=== PATIENT | male | born 1950 | race Caucasian/White ===

== ENCOUNTER 2018-12-24 16:30 | Emergency (ER) | payer SELFPAY ==
[2018-12-24] MEDS ORDERED: LEVALBUTEROL 1.25 MG/3 ML NEB ONE (16:59)
[2018-12-24 17:14] LABS: Absolute Lymphocytes (CBC) 1.6 K/uL (0.7-4.9); Basophils % 0.5 % (0-1.3); Hematocrit 35.2 % (39.6-49.0); MPV 8.4 fL (7.6-11.3); Monocytes % 4.3 % (3.3-12.3); RBC Red Blood Cell Count 3.95 M/uL (4.33-5.43)
[2018-12-24 17:18] LABS: Protime INR 1.92
[2018-12-24 17:41] LABS: Albumin 3.3 g/dL (3.4-5.0); Bilirubin Direct 0.2 mg/dL (0-0.2); Bilirubin Total 0.4 mg/dL (0.2-1.0); Potassium 3.8 mmol/L (3.5-5.1); Protein, Total 6.8 g/dL (6.4-8.2); Troponin (Emerg Dept Use Only) 0.03 ng/mL (0.0-0.045)
[2018-12-24 17:42] LABS: Magnesium 1.2 mg/dL (1.8-2.4)
--- NOTE | 2018-12-24 17:51 | RAD REPORT ---
EXAM DESCRIPTION: RAD - Chest Single View - 12/24/2018 5:21 pm CLINICAL HISTORY: Shortness of breath COMPARISON: None. TECHNIQUE: AP portable chest image was obtained 1707 hours . FINDINGS: No peripheral mass or consolidation. Interstitial markings are mildly prominent with the b aseline for the patient unknown. Cardiomegaly is present. Vasculature is mildly prominent. Again, bas [place] for the patient is unknown. No measurable pleural effusion and no pneumothorax. No acute bony abnormality seen. No acute aortic findings suspected. IMPRESSION: Cardiomegaly with mild vascular engorgement. Interstitial markings are prominent. Absent a baseline for comparison, findings are suspicious for mild failure or volume overload.
[2018-12-24] MEDS ORDERED: Levofloxacin 750mg IV 750 MG/150 ML BAG IV ONE (18:34)
[2018-12-24] MEDS ORDERED: Magnesium Sulfate 2gm IVPB 2 G/50 ML BAG IV ONE (18:35)
--- NOTE | 2018-12-24 20:40 | ER ---
Nurse's Notes [facility] [place], [place] [facility] Name: Cecilio Robles Age: 68 yrs Sex: Male : 1950 Arrival Date: 12/24/2018 Time: 16:32 Bed 2 Private MD: Diagnosis: Chronic obstructive pulmonary disease with (acute) exacerbation Presentation: 12/24 16:35 Presenting complaint: EMS states: pt was at the [facility] for an appointment due to sg shortness of breath and productive cough. Transition of care: patient was received from another setting of care (ambulatory primary care physician practice), [facility]. Onset of symptoms was December 24, 2018. Risk Assessment: Do you want to hurt yourself or someone else? Patient reports no desire to harm self or others. Initial Sepsis Screen: Does the patient meet any 2 criteria? RR > 20 per min. HR > 90 bpm. Yes Does the patient have a suspected source of infection? Yes: Productive cough/pneumonia. Care prior to arrival: Medication(s) given: Albuterol Neb x 3, Atrovent Neb x 1, Solumedrol IV initiated. 20 GA, in the right hand, Med neb given. 16:35 Method Of Arrival: EMS: [facility] sg 16:35 Acuity: АННА 3 sg Triage Assessment: 20:26 General: Appears in no apparent distress. Respiratory: Onset: The symptoms/episode ak1 began/occurred at an unknown time. the patient has mild shortness of breath. Historical: - Allergies: 18:29 No Known Allergies; sg - PMHx: 16:35 CHF; sg 18:29 Sleep Apnea; Diabetes - NIDDM; Hypothyroidism; Atrial Fib; PTSD; Hypertension; COPD; sg - Immunization history:: Adult Immunizations up to date. - Social history:: Smoking status: Patient/guardian denies using tobacco. - Ebola Screening: : Patient negative for fever greater than or equal to 101.5 degrees Fahrenheit, and additional compatible Ebola Virus Disease symptoms Patient denies exposure to infectious person Patient denies travel to an Ebola-affected area in the 21 days before illness onset No symptoms or risks identified at this time. Screenin:40 Abuse screen: Denies threats or abuse. Denies injuries from another. Nutritional sg screening: No deficits noted. Tuberculosis screening: No symptoms or risk factors identified. Never had TB. Fall Risk None identified. Assessment: 16:40 General: Appears in no apparent distress. well groomed, well developed, well nourished, sg Behavior is calm, cooperative, appropriate for age. Pain: Denies pain. Neuro: Level of Consciousness is awake, alert, obeys commands, Oriented to person, place, time, Iron Molder Helper are equal bilaterally Speech is normal, Facial symmetry appears normal. Cardiovascular: Capillary refill is brisk in bilateral fingers Patient's skin is warm and dry. Chest pain is denied. Cardiovascular: Rhythm is atrial fibrillation. Respiratory: Airway is patent Respiratory effort is even, unlabored, Respiratory pattern is regular. GI: Abdomen is round non-distended, obese, Reports tolerance of fluids, tolerance of food. : No signs and/or symptoms were reported regarding the genitourinary system. EENT: No signs and/or symptoms were reported regarding the EENT system. Derm: Skin is pink, warm \T\ dry. Musculoskeletal: No signs and/or symptoms reported regarding the musculoskeletal system. 17:40 Reassessment: Patient appears in no apparent distress at this time. Patient and/or sg family updated on plan of care and expected duration. Pain level reassessed. Patient is alert, oriented x 3, equal unlabored respirations, skin warm/dry/pink. 18:40 Reassessment: Patient appears in no apparent distress at this time. Patient and/or sg family updated on plan of care and expected duration. Pain level reassessed. Patient is alert, oriented x 3, equal unlabored respirations, skin warm/dry/pink. 20:25 General: Appears in no apparent distress. obese, Behavior is calm, cooperative, ak1 appropriate for age. Neuro: No deficits noted. Cardiovascular: Capillary refill is brisk Patient's skin is warm and dry. Rhythm is atrial fibrillation. Respiratory: Airway is patent Respiratory effort is even, unlabored, Respiratory pattern is regular, Breath sounds are clear pt with cough. GI: No signs and/or symptoms were reported involving the gastrointestinal system. : pt assisted out of bed to use urinal. EENT: No signs and/or symptoms were reported regarding the EENT system. Derm: No signs and/or symptoms reported regarding the dermatologic system. Musculoskeletal: No signs and/or symptoms reported regarding the musculoskeletal system. 21:00 Reassessment: pt ambulated with even unlabored resp. ERP notified. ak1 21:08 Reassessment: pt with steady gait at discharge. pt resp even and unlabored. pt ak1 verbalized understanding to return,even via EMS if needed. Vital Signs: 16:34 BP 155 / 109; Pulse 126; Resp 20; Temp 97.6; Pulse Ox 96% on R/A; Weight 102.06 kg; sg 17:00 BP 136 / 92; Pulse 101; Resp 18; Pulse Ox 98% on R/A; sg 18:00 BP 134 / 88; Pulse 99; Resp 18; Pulse Ox 98% on R/A; sg ED Course: 16:32 Patient arrived in ED. sg 16:33 Gabriele Julian PA is PHCP. jr8 16:33 Kemar Cardoso MD is Attending Physician. jr8 16:33 Arm band placed on. sg 16:38 Triage completed. sg 16:39 Anjel Connell, RN is Primary Nurse. sg 17:00 Initial lab(s) drawn, by ct, sent to lab. IV is patent, is intact, with good blood sg return, Flushed right hand with 5 ml normal saline. 17:22 XRAY Chest (1 view) In Process Unspecified. EDMS 17:27 EKG done, by sand technician. reviewed by Gabriele VILLANUEVA. sm3 18:20 First set of blood cultures drawn by ED staff, and second set obtained by Vipin VILLANUEVA. sg 20:27 Patient has correct armband on for positive identification. Placed in gown. Bed in low ak1 position. Call light in reach. Side rails up X 1. Adult w/ patient. bus driver/monitor on. Pulse ox on. NIBP on. 20:27 No provider procedures requiring assistance completed. ak1 21:00 IV discontinued, intact, bleeding controlled, No redness/swelling at site. Pressure ak1 dressing applied. Administered Medications: 17:00 Drug: Xopenex 1.25 mg Route: Inhalation; sg 19:00 Drug: LevaQUIN 750 mg Volume: 150 ml; Route: IVPB; Infused Over: 90 mins; Site: right sg hand; 20:31 Follow up: IV Status: Completed infusion ak1 19:00 Drug: Magnesium Sulfate 2 grams Route: IVPB; Infused Over: 2 hrs; Site: right hand; sg 20:31 Follow up: IV Status: Completed infusion ak1 Outcome: 20:29 Condition: good ak1 20:40 Discharge ordered by . jr8 20:58 Discharged to home via wheelchair, with family. ak1 20:58 Discharge instructions given to patient, family, Instructed on discharge instructions, follow up and referral plans. no drinking with medication, no driving heavy equipment, medication usage, Demonstrated understanding of instructions, follow-up care, medications, Prescriptions given X 2. 21:09 Patient left the ED. ak1 Signatures: Dispatcher [employer] EDMS Anjel Connell RN RN Gabriele English PA PA jr8 Licha Perez RN RN ak1 Yani Lau [facility]
--- NOTE | 2018-12-24 20:41 | EDPHYS ---
Physician Documentation [facility] [place] Name: Cecilio Robles Age: 68 yrs Sex: Male : 1950 Arrival Date: 12/24/2018 Time: 16:32 Bed 2 Private MD: ED Physician Kemar Cardoso HPI: 12/24 16:44 This 68 yrs old Male presents to ER via EMS with complaints of Shortness Of Breath. jr8 16:44 The patient has shortness of breath at rest. Onset: The symptoms/episode began/occurred jr8 gradually, 2 day(s) ago, and became worse today, and became persistent today. Duration: The symptoms are continuous. The patient's shortness of breath is aggravated by light activity, walking. Associated signs and symptoms: Pertinent positives: non-productive cough. Severity of symptoms: At their worst the symptoms were moderate in the emergency department the symptoms are unchanged. It is unknown whether or not the patient has had similar symptoms in the past. The patient has been recently seen by a physician:. [place] went [place] today to be evaluated for increased shortness of breath and cough. History of CHF and COPD amongst other medical conditions. EMS called to clinic for increased work of breathing, fatigue, and shortness of breath. Given breathing treatments at clinic and en route to hospital. Now feeling better but sill with audible wheezing upon arrival . Historical: - Allergies: 18:29 No Known Allergies; sg - PMHx: 16:35 CHF; sg 18:29 Sleep Apnea; Diabetes - NIDDM; Hypothyroidism; Atrial Fib; PTSD; Hypertension; COPD; sg - Immunization history:: Adult Immunizations up to date. - Social history:: Smoking status: Patient/guardian denies using tobacco. - Ebola Screening: : Patient negative for fever greater than or equal to 101.5 degrees Fahrenheit, and additional compatible Ebola Virus Disease symptoms Patient denies exposure to infectious person Patient denies travel to an Ebola-affected area in the 21 days before illness onset No symptoms or risks identified at this time. ROS: 16:44 Eyes: Negative for injury, pain, redness, and discharge, ENT: Negative for injury, jr8 pain, and discharge, Neck: Negative for injury, pain, and swelling, Cardiovascular: Negative for chest pain, palpitations, and edema, Abdomen/GI: Negative for abdominal pain, nausea, vomiting, diarrhea, and constipation, Back: Negative for injury and pain, MS/Extremity: Negative for injury and deformity, Skin: Negative for injury, rash, and discoloration, Neuro: Negative for headache, weakness, numbness, tingling, and seizure. 16:44 Respiratory: Positive for cough, dyspnea on exertion, shortness of breath, wheezing. Exam: 16:44 Eyes: Pupils equal round and reactive to light, extra-ocular motions intact. Lids and jr8 lashes normal. Conjunctiva and sclera are non-icteric and not injected. Cornea within normal limits. Periorbital areas with no swelling, redness, or edema. ENT: Nares patent. No nasal discharge, no septal abnormalities noted. Tympanic membranes are normal and external auditory canals are clear. Oropharynx with no redness, swelling, or masses, exudates, or evidence of obstruction, uvula midline. Mucous membranes moist. Neck: Trachea midline, no thyromegaly or masses palpated, and no cervical lymphadenopathy. Supple, full range of motion without nuchal rigidity, or vertebral point tenderness. No Meningismus. Abdomen/GI: Soft, non-tender, with normal bowel sounds. No distension or tympany. No guarding or rebound. No evidence of tenderness throughout. Back: No spinal tenderness. No costovertebral tenderness. Full range of motion. Skin: Warm, dry with normal turgor. Normal color with no rashes, no lesions, and no evidence of cellulitis. MS/ Extremity: Pulses equal, no cyanosis. Neurovascular intact. Full, normal range of motion. Neuro: Awake and alert, GCS 15, oriented to person, place, time, and situation. Cranial nerves II-XII grossly intact. Motor strength 5/5 in all extremities. Sensory grossly intact. Cerebellar exam normal. Normal gait. 16:44 Cardiovascular: Rate: tachycardic, Rhythm: irregularly irregular, Pulses: Pulses are 2+ in right radial artery and left radial artery. Heart sounds: normal, normal S1and S2, no S3 or S4, no murmur, no rub, no gallop, Edema: 1+ edema to level of left midcalf, left ankle, right midcalf and right ankle, JVD: is not appreciated. 16:44 Respiratory: mild respiratory distress is noted, Respirations: tachypnea, Breath sounds: wheezing: expiratory that is moderate, is heard diffusely. Vital Signs: 16:34 BP 155 / 109; Pulse 126; Resp 20; Temp 97.6; Pulse Ox 96% on R/A; Weight 102.06 kg; sg 17:00 BP 136 / 92; Pulse 101; Resp 18; Pulse Ox 98% on R/A; sg 18:00 BP 134 / 88; Pulse 99; Resp 18; Pulse Ox 98% on R/A; sg MDM: 16:33 Patient medically screened. rust 20:38 Data reviewed: vital signs, nurses notes, lab test result(s), EKG, radiologic studies, jr plain films, and as a result, I will discharge patient. Data interpreted: Pulse oximetry: on room air is 95 %. Interpretation: normal. Counseling: I had a detailed discussion with the patient and/or guardian regarding: the historical points, exam findings, and any diagnostic results supporting the discharge/admit diagnosis, lab results, radiology results, the need for outpatient follow up, a family practitioner, to return to the emergency department if symptoms worsen or persist or if there are any questions or concerns that arise at home. Response to treatment: the patient's symptoms have resolved after treatment. ED course: Patient off of oxygen and feeling much better. Was ambulated and without any complaint. Labs stable. No pneumonia present. Patient with plenty of medicine at home. [facility] If worse knows to come back . 12/24 16:33 Order name: Basic Metabolic Panel rust 12/24 16:33 Order name: CBC with Diff; Complete Time: 17:19 rust 12/24 16:33 Order name: LFT's; Complete Time: 17:43 rust 12/24 16:33 Order name: Magnesium; Complete Time: 17:43 rust 12/24 16:33 Order name: NT PRO-BNP; Complete Time: 17:43 rust 12/24 16:33 Order name: PT-INR; Complete Time: 17:29 rust 12/24 16:33 Order name: Troponin (emerg Dept Use Only); Complete Time: 17:43 rust 12/24 16:33 Order name: XRAY Chest (1 view); Complete Time: 17:56 rust 12/24 16:33 Order name: Procalcitonin; Complete Time: 17:56 rust 12/24 16:33 Order name: Lactate; Complete Time: 17:43 rust 12/24 16:33 Order name: Blood Culture Adult (2) rust 12/24 16:36 Order name: Basic Metabolic Panel; Complete Time: 17:43 [facility] 12/24 20:25 Order name: Lactate Sepsis 2 HR Follow-up; Complete Time: 20:28 EDMN 12/24 16:33 Order name: EKG; Complete Time: 16:36 rust 12/24 16:33 Order name: Cardiac monitoring; Complete Time: 16:39 rust 12/24 16:33 Order name: EKG - Nurse/Tech; Complete Time: 20:31 rust 12/24 16:33 Order name: IV Saline Lock; Complete Time: 16:39 rust 12/24 16:33 Order name: Labs collected and sent; Complete Time: 16:39 rust 12/24 16:33 Order name: O2 Per Protocol; Complete Time: 16:40 rust 12/24 16:33 Order name: O2 Sat Monitoring; Complete Time: 16:40 rust Administered Medications: 17:00 Drug: Xopenex 1.25 mg Route: Inhalation; 19:00 Drug: LevaQUIN 750 mg Volume: 150 ml; Route: IVPB; Infused Over: 90 mins; Site: right sg hand; 20:31 Follow up: IV Status: Completed infusion ak1 19:00 Drug: Magnesium Sulfate 2 grams Route: IVPB; Infused Over: 2 hrs; Site: right hand; 20:31 Follow up: IV Status: Completed infusion ak1 Disposition: 12/25 07:29 Co-signature as Attending Physician, Kemar Cardoso MD I agree with the assessment and kdr plan of care. Disposition: 12/24/18 20:40 Discharged to Home. Impression: Chronic obstructive pulmonary disease with (acute) exacerbation. - Condition is Stable. - Discharge Instructions: Chronic Obstructive Pulmonary Disease. - Prescriptions for Levaquin 500 mg Oral Tablet - take 1 tablet by ORAL route once daily for 7 days; 7 tablet. Prednisone 20 mg Oral Tablet - take 1 tablet by ORAL route once daily for 5 days; 5 tablet. - Medication Reconciliation Form, Thank You Letter, Antibiotic Education, Prescription Opioid Use form. - Follow up: Private Physician; When: 2 - 3 days; Reason: Recheck today's complaints, Continuance of care, Re-evaluation by your physician. - Problem is new. - Symptoms have improved. Signatures: Dispatcher [employer] EDMS Anjel Connell RN RN Kemar Lopez MD MD kdr Roszak, Josh, PA PA jr8 Licha Perez RN RN ak1 Corrections: (The following items were deleted from the chart) 12/24 21:09 20:40 12/24/2018 20:40 Discharged to Home. Impression: Chronic obstructive pulmonary ak1 disease with (acute) exacerbation. Condition is Stable. Forms are Medication Reconciliation Form, Thank You Letter, Antibiotic Education, Prescription Opioid Use. Follow up: Private Physician; When: 2 - 3 days; Reason: Recheck today's complaints, Continuance of care, Re-evaluation by your physician. Problem is new. Symptoms have improved. jr8
--- NOTE | 2018-12-25 10:41 | EKG ---
Test Date: 2018-12-24 Test Time: 17:28:13 Commission Auditor: PAUL MEASUREMENT RESULTS: Intervals: Rate: 108 MO: QRSD: 86 QT: 354 QTc: 474 Kite: P: MO: QRS: 25 T: -44 INTERPRETIVE STATEMENTS: Atrial fibrillation with rapid ventricular response Low voltage QRS Septal infarct, age undetermined Abnormal ECG No previous ECG available for comparison Electronically Signed On 12-25-18 10:41:11 CDT by Awais [place]
== END 2018-12-24 21:09 | disposition home or self-care (01) ==
LOC: ER 16:30
DX: J44.1 Chronic obstructive pulmonary disease with (acute) exacerbation (principal); I11.0 Hypertensive heart disease with heart failure; I50.9 Heart failure, unspecified; E11.9 Type 2 diabetes mellitus without complications; E03.9 Hypothyroidism, unspecified; I48.91 Unspecified atrial fibrillation
CPT/HCPCS: 36415; 71045; 80048; 80076; 83605; 83735; 83880; 84145; 84484; 85025; 85610; 87040; 93005; 96365; 96366; 96368; 99285; J3475

== ENCOUNTER 2020-02-16 18:13 | Emergency (ER) | payer OTHER ==
--- OUTSIDE RECORDS SUMMARY | 2020-02-16 18:15 | XMS REPORT | Clinical Summary ---
:1950 Author Organization [facility] Address [address] [place] [address] Care Team Providers Name Role Phone Glenys Gutiérrez MD Primary Care Provider [phone] Allergies No Known Allergies Medications Medication Sig Dispensed Refills Start End Date Status Date budesonide-formotero Inhale 2 puffs 0 Active l (SYMBICORT) 2 (two) times 160-4.5 a day. mcg/actuation inhaler diltiazem CD Take 240 mg by 0 Ac tive (CardIZEM CD) 240 MG mouth daily. 24 hr capsule finasteride Take 5 mg by 0 Activ e (PROSCAR) 5 mg mouth daily. tablet fluticasone 1 spray into 0 Activ e (FLONASE) 50 each nostril 2 mcg/actuation nasal (two) times a spray day. glipiZIDE Take 10 mg by 0 Active (GLUCOTROL) 10 MG mouth. 2 tab tablet by mouth twice daily metFORMIN Take 850 mg by 0 Activ e (GLUCOPHAGE) 850 MG mouth 3 tablet (three) times a day. metoprolol tartrate Take 100 mg by 0 Active (LOPRESSOR) 25 MG mouth daily. tablet omeprazole Take 20 mg by 0 Activ e (PriLOSEC) 20 MG mouth daily. capsule saxagliptin Take 5 mg by 0 Activ e (ONGLYZA) 5 mg mouth daily. tablet tiotropium (SPIRIVA) Place 1 0 Active 18 mcg per capsule into inhalation capsule inhaler and inhale once daily. rivaroxaban Take 20 mg by 0 Acti ve (XARELTO) tablet mouth daily. blood sugar 0 Active diagnostic strips (ACCU-CHEK LISA PLUS TEST STRP) strip test strips prazosin (MINIPRESS) Take 4 mg by 0 Active 2 MG capsule mouth nightly. omega-3 fatty Take by mouth. 0 A ctive acids-vitamin E (FISH OIL) 1,000 mg capsule cholecalciferol, Take 400 Units 0 Active vitamin D3, (VITAMIN by mouth 3 D3 ORAL) (three) times a day. clindamycin Apply 0 Active (CLINDAGEL) 1 % gel topically 2 (two) times a day. cyanocobalamin 1,000 Inject 1,000 0 Active mcg/mL injection mcg into the shoulder, thigh, or buttocks once a week. levothyroxine Take 150 mcg 0 Act calixto (SYNTHROID, LEVOXYL) by mouth every 200 mcg tablet morning. lisinopril Take 40 mg by 0 Activ e (PRINIVIL,ZESTRIL) mouth daily. 40 mg tablet mupirocin Apply 0 Active (BACTROBAN) 2 % topically 3 ointment (three) times a day. buPROPion XL Take 300 mg by 0 Ac tive (WELLBUTRIN XL) 300 mouth daily. MG 24 hr tablet atorvastatin Take 80 mg by 0 Act calixto (LIPITOR) 80 MG mouth daily. tablet alogliptin 25 mg Take 25 mg by 0 Active tablet mouth daily. ibuprofen (ADVIL) TAKE ONE (1) 0 Active 800 MG tablet TABLET(S) BY 9 MOUTH THREE TIMES A DAY NEEDED FOR 10 DAYS. spironolactone Take 25 mg by 0 A ctive (ALDACTONE) 25 MG mouth daily. tablet sulfamethoxazole-tri Take 1 tablet 0 Active methoprim (BACTRIM by mouth 2 DS) 800-160 mg per (two) times a tablet day. Taking on 02/24/20 and 02/25/20 albuterol (PROAIR Inhale 2 puffs 18 g 3 0 HFA,PROVENTIL every 6 (six) 9 20 HFA,VENTOLIN HFA) 90 hours as mcg/actuation needed for inhalerIndications: wheezing. Chronic obstructive pulmonary disease, unspecified COPD type (HCC) cyclobenzaprine Take 0.5 30 tablet 0 06/16/20 Disc ontinued (FLEXERIL) 10 mg tablets (5 mg 9 19 (Cost of tabletIndications: total) by m edication) Acute midline low mouth 2 (two) back pain without times a day as sciatica, Acute needed for midline thoracic muscle spasms back pain for up to 30 days. Active Problems Problem Noted Date Influenza 09/15/2018 Normocytic anemia 09/15/2018 Sleep apnea 07/21/2018 Overview: Uses CPAP Monitored at [facility] Feels refreshed, relaxed every morning Able to sleep well with CPAP Last Assessment & Plan: Reports feeling refreshed and relaxed will continue using CPAP machine Hypothyroidism (acquired) 07/21/2018 Overview: Taking Levothyroxine 200 mcg denies constipation, fatigues TSH wnl- done at the [place] 08/2018 Last Assessment & Plan: continue Levothyroxine 200mcg Chronic obstructive pulmonary disease 04/14/2018 Overview: C/o cough, expectoration Decreased number of cigarettes to 4-5/da y has COPD - on Symbicort , Spiriva uses ALbuterol MDI- 4times/day, Uses O2 at night at home Last Assessment & Plan: COPD is stable Uses SPiriva, Symbicort and Albuterol Tremor of left hand 04/14/2018 Overview: C/o Tremors of left hand- new onset x 1 year Tremors occur when he trying to hold a c up , eat food, hold articles with his left hand- hand shakes incontrollably No tremors at rest Last Assessment & Plan: Consult Neurology Chronic atrial fibrillation 04/14/2018 Overview: On Xarelto gets meds from [facility] taking Metoprolol 12. 5mg bid , Digoxin , Diltiazem Denies any palpitations, SOB. 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 Currently decreased cigarettes to 4-5 ci garettes/day Taking Wellbutrin SR and helps to decrea se smoking Last Assessment & Plan: Will continue to encourage to stop smoking Mixed hyperlipidemia 04/14/2018 Overview: Takes Simvastatin 80mg No s/e Last Assessment & Plan: Lipid abnormalities are gradually improving will continue statin, exercise, diet mo dification PTSD (post-traumatic stress disorder) 04/14/2018 Overview: Taking Bupropion SR 150mg and Citalopram 40mg [place] war vet Denies SI/HI/Mood swings Last Assessment & Plan: Psychological condition is STABLE Will continue Citalopram and Wellbutrin Anemia due to vitamin B12 deficiency 04/14/2018 Overview: Labs at [facility] in Feb 2018 showed he had vit b 12 deficiency Taking Vit b 12 shots at the [facility] Last Assessment & Plan: Vit b 12 shots every month Encounters Date Type Specialty Care Team Description 02/15/2020 Telephone Consult Family Medicine Glenys Gutiérrez Pros israel cancer ([facility]) (Primary Dx); MD Tray Diabetes mellit type 2 in obese ([facility]); Chronic atrial fibrillation; Hypothyroidism (acquired); Mixed hyperlipi demia; PTSD (post-trau matic stress disorder); Chronic bronchi tis, unspecified chronic bronchitis type ([facility]) 12/29/2019 Telephone Family Medicine Glenys Gutiérrez MD 10/02/2019 Telephone Family Medicine Glenys Gutiérrez MD 09/23/2019 Telephone Family Medicine Glenys Gutiérrez MD 06/16/2019 Office Visit Family Medicine Glenys Gutiérrez Acute mid line low back pain without sciatica (Primary Dx); MD Tray Acute midline t horacic back pain; Obesity (BMI 30 .0-34.9) after 02/15/2019 Immunizations Name Administration Dates Next Due FLUZONE HIGH-DOSE PF 04/13/2019, 04/11/2016 Influenza, Unspecified 02/24/2018 Pneumococcal Conjugate 13-Valent 10/29/2016 Pneumococcal Polysaccharide 11/27/2018 Family History Medical History Relation Name Comments Prostate cancer Father Diabetes Mother Relation Name Status Comments Father Mother Social History Tobacco Use Types Packs/Day Years Used Date Current Every Day Smoker Cigarettes 0.5 50 Smokeless Tobacco: Never Used Tobacco Cessation: Ready to Quit: Yes; C ounseling Given: Yes Alcohol Use Drinks/Week oz/Week Comments Yes 0-2 every 2 christopher hs Sex Assigned at Date Recorded Not on file Job Start Date Occupation Industry Not on file Not on file Not on file Travel History Travel Start Travel End No recent travel history available. Last Filed Vital Signs Vital Sign Reading Time Taken Comments Blood Pressure 130/70 02/15/2020 1:54 PM CDT Pulse 74 06/16/2019 1:27 PM [employer] Temperature 36.7 C (98.1 F) 02/15/2020 1:54 PM CDT Respiratory Rate 18 06/16/2019 1:27 PM [employer] Oxygen Saturation 96% 06/16/2019 1:27 PM [employer] Inhaled Oxygen Concentration - - Weight 113 kg (249 lb) 02/15/2020 1:54 PM CDT Height 188 cm (6' 2") 02/15/2020 1:54 PM CDT Body Mass Index 31.97 02/15/2020 1:54 PM CDT Plan of Treatment Health Maintenance Due Date Last Done Comments DIABETIC RETINAL EYE EXAM 1950 DIABETIC FOOT EXAM 1960 SHINGLES VACCINES (#1) 2000 INFLUENZA VACCINE 02/06/2020 04/13/2019, 04/13/2019, 2017, Additional history exists COLONOSCOPY SCREENING 03/08/2024 03/08/2014 65+ PNEUMOCOCCAL VACCINE Completed 11/27/2018, 10/29/2016 Results Not on fileafter 02/15/2019 Advance Directives For more information, please contact: [phone] Type Date Recorded 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
--- OUTSIDE RECORDS SUMMARY | 2020-02-16 18:15 | XMS REPORT | Continuity of Care Document ---
:1950 Author Organization [facility] Address [address] [place] [address] Care Team Providers Name Role Phone Marla MOSLEY, Glenys Feliz Primary Care Physician [phone] Tray Gutiérrez MD Attending Clinician Payers Payer Name Policy Type Policy Number Effective Date Expiration Date S tho [id number] [id number] 2015 [place] [id number] 00:00:00 [employer] 07/2014-Prese ntMilitary Problems Condition Condition Condition Status Onset Resolution Last Treating Co mments Source Name Details Category Date Date Treatment Clinician Date Influenza Influenza Disease Active Jose Francisco ston 3-11 [facility] 00:00: st 00 Normocytic Normocytic Disease Active [place] anemia anemia 3-11 [facility] 00:00: st 00 Sleep Sleep Disease Active Overview: [place] n apnea apnea 1-14 Uses CPAP Methodi 00:00: Monitored st 00 at [facility] refreshed , relaxed every morning Able to sleep well with CPAPLast Assessmen t & Plan: Reports feeling refreshed and relaxed will continue using CPAP machine Hypothyroi Hypothyroi Disease Active Overview : [place] dism dism 1-14 Taking [facility] (acquired) (acquired) 00:00: Levothyro st 00 xine 200 mcg denies constipat ion, fatigues TSH wnl- done at the [facility] 08/2018 Last Assessmen t & Plan: continue Levothyro xine 200mcg Chronic Chronic Disease Active 2017-07 Overview: [place] obstructiv obstructiv 0-08 C/o Me thodi e e 00:00: cough, st pulmonary pulmonary 00 expectora disease disease tionDecre ased number of cigarette s to 4-5/day has COPD - on Symbicort , Spiriva uses ALbuterol MDI- 4times/da y, Uses O2 at night at homeLast Assessmen t & Plan: COPD is stableUse s SPiriva, Symbicort and Albuterol Tremor of Tremor of Disease Active 2017-07 Overview: [place] left hand left hand 0-08 C/o Meth balwinder 00:00: Tremors st 00 of left hand- new onset x 1 yearTremo rs occur when he trying to hold a cup , eat food, hold articles with his left hand- hand shakes incontrol lablyNo tremors at rest Last Assessmen t & Plan: Consult Neurology Chronic Chronic Disease Active 2017-07 Overview: Tucker chamberlain atrial atrial 0-08 On Methodi fibrillati fibrillati 00:00: Xarelto s t on on 00 gets meds from [facility] taking Metoprolo l 12. 5mg bid , Digoxin, Diltiazem Denies any palpitati ons, SOB.Last Assessmen t & Plan: Continue Diltiazem , Xarelto Diabetes Diabetes Disease Active 2017-07 Overview: Baljinder cid mellitus mellitus 0-08 Last Method i type 2 in type 2 in 00:00: HbA1C 7.6 s t obese obese 00 at [facility] Jul 07, 2018- brings labs to clinic - scanned in Epic On Metformin 850mg tid, Onglyza and Glipizide No burning in feetEye exam in 03/2018- Dr Bauman [place] Last Assessmen t & Plan: Not started Trulicity yet de to covearge restricti on modify diet , weight loss continue Metformin , Onglyza and Glipizide Smoker Smoker Disease Active 2017-07 Overview: Candido burrows 0-08 Smokes Methodi 00:00: since age st 00 18 - [place] war vetCurren tly decreased cigarette s to 4-5 cigarette s/dayDa moser Wellbutri n SR and helps to decrease smokingLa st Assessmen t & Plan: Will continue to encourage to stop smoking Mixed Mixed Disease Active 2017-07 Overview: Candido burrows hyperlipid hyperlipid 0-08 Takes Me thodi emia emia 00:00: Simvastat st 00 in 80mgNo s/eLast Assessmen t & Plan: Lipid abnormali ties are gradually improving will continue statin, exercise, diet modificat ion PTSD PTSD Disease Active 2017-07 Overview: [place] (post-trau (post-trau 0-08 Taking Me thodi matic matic 00:00: Bupropion st stress stress 00 SR 150mg disorder) disorder) and Citalopra m 40mg [place] war vetDenies SI/HI/Moo d swingsLas t Assessmen t & Plan: Psycholog ical condition is STABLEWil l continue Citalopra m and Wellbutri n Anemia due Anemia due Disease Active 2017-07 Overview : [place] to vitamin to vitamin 0-08 Labs at [facility]i B12 [facility] 2017 showed he had vit b 12 deficienc yTaking Vit b 12 shots at the [place] Last Assessmen t & Plan: Vit b 12 shots every month Allergies, Adverse Reactions, Alerts This patient has no known allergies or adverse reactions. Family History Family Member Diagnosis Comments Start Date Stop Date Source Natural father Prostate cancer [place] [facility] Natural mother Diabetes [facility] thodist Social History Social Habit Start Date Stop Date Quantity Comments Source History of tobacco Cigarette Smoker [place] use [facility] Sex Assigned At [place] [facility] Cigarettes smoked 2020-02-16 2020-02-16 [place] current (pack per 00:00:00 00:00:[address] day) - Reported Cigarette 2020-02-16 2020-02-16 [place] pack-years 00:00:00 00:00:00 [facility] Alcohol intake 2020-02-16 2020-02-16 Current drinker [place] 00:00:00 00:00:00 of alcohol [facility] (finding) Alcohol Comment 2016-05-07 2016-05-07 0-2 every 2 [place] 00:00:00 00:00:00 months [facility] Smoking Status Start Date Stop Date Source Current every day smoker 2020-02-16 00:00:00 Jose Francisco connors [facility] Medications Ordered Filled Start Stop Current Ordering Indication Dosage Frequency Signature Comments Components Source Medication Medication Date Date Medication? Clinician (SIG) Name Name spironolact 2019-0 Yes 25mg QD Take 25 mg [place] one 8-10 by mouth [facility]i (ALDACTONE) 13:56: daily. st 25 MG 16 tablet sulfamethox 2019-0 Yes 1{tbl} Q.5D Take 1 [place] azole-trime 8-10 tablet by Met bakarii thoprim 13:56: mouth 2 st (BACTRIM 16 (two) DS) 800-160 times a mg per day. tablet Taking on 02/24/20 and 02/25/20 metoprolol 2020-0 Yes 100mg QD Take 100 [place] tartrate 8-10 mg by [facility] (LOPRESSOR) 13:54: mouth st 25 MG 53 daily. tablet levothyroxi 2020-0 Yes 150ug QD Take 150 [place] ne 8-10 mcg by [facility] (SYNTHROID, 13:54: mouth st LEVOXYL) 53 every 200 mcg morning. tablet budesonide- 2020-0 Yes 2{puff} Q.5D Inhale 2 [place] formoterol 8-10 puffs 2 Method i (SYMBICORT) 13:48: (two) st 160-4.5 24 times a mcg/actuati day. on inhaler diltiazem 2020-0 Yes 240mg QD Take 240 Jose Francisco ston CD 8-10 mg by [facility] (CardIZEM 13:48: mouth st CD) 240 MG 24 daily. 24 hr capsule finasteride 2020-0 Yes 5mg QD Take 5 mg [place] (PROSCAR) 5 8-10 by mouth Meth balwinder mg tablet 13:48: daily. st 24 fluticasone 2020-0 Yes 1{spray Q.5D 1 spray [place] (FLONASE) 8-10 } into each Metho di 50 13:48: nostril 2 st mcg/actuati 24 (two) on nasal times a spray day. glipiZIDE 2020-0 Yes 10mg Take 10 mg [place] (GLUCOTROL) 8-10 by mouth. Met hodi 10 MG 13:48: [address] tablet 24 mouth twice daily metFORMIN 2020-0 Yes 850mg [id number] Take 850 [place] (GLUCOPHAGE 8-10 [id number] mg by Joy vazquez ) 850 MG 13:48: 3D mouth 3 st tablet 24 (three) times a day. omeprazole 2020-0 Yes 20mg QD Take 20 mg [place] (PriLOSEC) 8-10 by mouth Metho di 20 MG 13:48: daily. st capsule 24 saxagliptin 2020-0 Yes 5mg QD Take 5 mg [place] (ONGLYZA) 5 8-10 by mouth Meth balwinder mg tablet 13:48: daily. st 24 tiotropium 2020-0 Yes 1{capsu QD Place 1 [place] (SPIRIVA) 8-10 le} capsule [facility] 18 mcg per 13:48: into st inhalation 24 inhaler capsule and inhale once daily. rivaroxaban 2020-0 Yes 20mg QD Take 20 mg [place] (XARELTO) 8-10 by mouth Method i tablet 13:48: daily. st 24 blood sugar 2020-0 Yes [place] diagnostic 8-10 [facility] strips 13:48: st (ACCU-CHEK 24 LISA PLUS TEST STRP) strip test strips prazosin 2020-0 Yes 4mg QD Take 4 mg [place] (MINIPRESS) 8-10 by mouth Meth balwinder 2 MG 13:48: nightly. st capsule 24 omega-3 2020-0 Yes Take by [place] fatty 8-10 mouth. [facility] acids-vitam 13:48: st in E (FISH 24 OIL) 1,000 mg capsule cholecalcif 2020-0 Yes 400U [id number] Take 400 [place] leno, 8-10 [id number] Units by Meth balwinder vitamin D3, 13:48: 3D mouth 3 st (VITAMIN D3 24 (three) ORAL) times a day. clindamycin 2020-0 Yes Q.5D Apply [place] (CLINDAGEL) 8-10 topically Met hodi 1 % gel 13:48: 2 (two) st 24 times a day. cyanocobala 2020-0 Yes 1000ug Q7D Inject [place] min 1,000 8-10 1,000 mcg Metho di mcg/mL 13:48: into the st injection 24 shoulder, thigh, or buttocks once a week. lisinopril 2020-0 Yes 40mg QD Take 40 mg [place] (PRINIVIL,Z 8-10 by mouth Meth balwinder ESTRIL) 40 13:48: daily. st mg tablet 24 mupirocin 2020-0 Yes [id number] Apply [place] (BACTROBAN) 8-10 [id number] topically Methodi 2 % 13:48: 3D 3 (three) st ointment 24 times a day. buPROPion 2020-0 Yes 300mg QD Take 300 Jose Francisco ston XL 8-10 mg by [facility] (WELLBUTRIN 13:48: mouth st XL) 300 MG 24 daily. 24 hr tablet atorvastati 0 Yes 80mg QD Take 80 mg [place] n (LIPITOR) 8-10 by mouth Meth balwinder 80 MG 13:48: daily. st tablet 24 alogliptin Yes 25mg QD Take 25 mg [place] 25 mg 8-10 by mouth [facility] tablet 13:48: daily. st 24 cyclobenzap 2018-07 2019- No Acute 5mg Q.5D Take 0.5 [place] rine 2-10 12-10 midline tablets (5 Metho di (FLEXERIL) 00:00: 00:00 thoracic mg total) st 10 mg 00 :00 back pain by mouth 2 tablet (two) times a day as needed for muscle spasms for up to 30 days. ibuprofen 2018-07 Yes TAKE ONE [place] (ADVIL) 800 2-03 (1) [facility] MG tablet 00:00: TABLET(S) st 00 BY MOUTH THREE TIMES A DAY NEEDED FOR 10 DAYS. albuterol 2020- No Chronic 2{puff} Q6H Inhale 2 [place] (PROAIR 11-27 05-22 obstructive puffs Met hodi HFA,PROVENT 00:00: 23:[address] [place] 00 :00 disease, (six) HFA,VENTOLI unspecified hours as N HFA) 90 COPD type needed for mcg/actuati (HCC) wheezing. on inhaler Immunizations Ordered Immunization Filled Immunization Date Status Commen ts Source Name Name FLUZONE HIGH-DOSE PF 2019-04-13 Completed [place] 00:00:00 [facility] Pneumococcal 2018-11-27 Completed [place] Polysaccharide 00:00:00 [facility] Influenza, 2018-02-24 Completed [place] Unspecified 00:00:00 [facility] Pneumococcal 2016-10-29 Completed [place] Conjugate 13-Valent 00:00:00 Metho dist FLUZONE HIGH-DOSE PF 2016-04-11 Completed [place] 00:00:00 [facility] Vital Signs Vital Name Observation Time Observation Value Comments Source Systolic blood 2020-02-15 13:54:00 130 mm[Hg] [place] [facility] pressure Diastolic blood 2020-02-15 13:54:00 70 mm[Hg] [place] [facility] pressure Body temperature 2020-02-15 13:54:00 36.72 Renée Tucker chamberlain [facility] Body height 2020-02-15 13:54:00 188 cm [place] Body weight 2020-02-15 13:54:00 112.946 kg [place] BMI 2020-02-15 13:54:00 31.97 kg/m2 [place] Heart rate 2019-06-16 13:27:00 74 /min [place] Respiratory rate 2019-06-16 13:27:00 18 /min Tucker chamberlain [facility] Oxygen saturation in 2019-06-16 13:27:00 96 /min [place] Arterial blood by Pulse oximetry Procedures This patient has no known procedures. Plan of Care Planned Activity Planned Date Details Comments Source Future Scheduled 2024-03-08 COLONOSCOPY SCREENING [place] [facility] Test 00:00:00 [code = COLONOSCOPY SCREENING] Future Scheduled 2020-02-06 INFLUENZA VACCINE [place] [facility] Test 00:00:00 [code = INFLUENZA VACCINE] Future Scheduled 2000 SHINGLES VACCINES [place] [facility] Test 00:00:00 (#1) [code = SHINGLES VACCINES (#1)] Future Scheduled 1960 DIABETIC FOOT EXAM [place] [facility] Test 00:00:00 [code = DIABETIC FOOT EXAM] Future Scheduled 1950 DIABETIC RETINAL EYE Jose Francisco ston [facility] Test 00:00:00 EXAM [code = DIABETIC RETINAL EYE EXAM] Encounters Start End Encounter Admission Attending Care Care Encounter Source Date/Time Date/Time Type Type Clinicians Facility Department ID 2020-02-15 2020-02-15 Outpatient [facility] [id number] [place] 00:00:00 00:00:00 GLENYS [address] Results This patient has no known results.
--- NOTE | 2020-02-16 20:06 | ER ---
Nurse's Notes [facility] Name: Cecilio Robles Age: 69 yrs Sex: Male : 1950 Arrival Date: 02/16/2020 Time: 18:20 Bed 23 Private MD: Diagnosis: Encounter for change or removal of surgical wound dressing Presentation: 02/15 18:26 Chief complaint: Patient states: Had prostate CA surgery 02/09/20. Has had leaking of ll1 clear fluid to LLQ abdominal wound site. No pain, redness, fever. Just clear drainage. States he would like his weathers checked also. Coronavirus screen: Client denies travel out of the [place] in the last 14 days. At this time, the client does not indicate any symptoms associated with coronavirus-19. Coronavirus screen: The client reports previous COVID testing was negative. Ebola Screen: Patient denies travel to an Ebola-affected area in the 21 days before illness onset. Initial Sepsis Screen: Does the patient meet any 2 criteria? No. Patient's initial sepsis screen is negative. Risk Assessment: Do you want to hurt yourself or someone else? Patient reports no desire to harm self or others. Onset of symptoms was February 12, 2020. 18:26 Acuity: АННА 3 ll1 18:26 Method Of Arrival: Ambulatory ll1 Historical: - Allergies: 18:25 No Known Allergies; ll1 - Home Meds: 19:40 albuterol sulfate 90 mcg/actuation Inhl HFAA 2 puffs every 4 hours [Active]; alogliptin jb4 25 mg oral tab 1 tab once daily [Active]; atorvastatin 80 mg oral tab 0.5 tab once daily [Active]; budesonide-formoterol inhalation inhalation 2 puffs 2 times per day [Active]; cholecalciferol (vitamin D3) 2,000 unit oral tab 0.5 tab daily [Active]; cyanocobalamin (vitamin B-12) 1,000 mcg/mL injection soln 1 mL once moly [Active]; diltiazem HCl 240 mg Oral cp24 1 cap once daily [Active]; docusate sodium 100 mg Oral cap 1 cap once daily [Active]; finasteride 5 mg oral tab 1 tab once daily [Active]; fluticasone propionate (bulk) miscellaneous [Active]; furosemide 20 mg Oral tab 1 tab once daily [Active]; glipizide 10 mg Oral tab 2 tabs 2 times per day [Active]; levothyroxine 150 mcg tab 1 tab once daily [Active]; lisinopril 40 mg Oral tab 1 tab once daily [Active]; magnesium citrate oral soln every 6 hours [Active]; metformin 850 mg Oral tab 1 tab 3 times per day [Active]; metoprolol succinate 100 mg oral Tb24 1 tab once daily [Active]; omeprazole 20 mg Oral cpDR 1 cap once daily [Active]; prazosin 5 mg Oral cap 1 cap nightly [Active]; rivaroxaban oral 20 mg oral 1 tab nightly [Active]; spironolactone 25 mg Oral tab 1 tab once daily [Active]; - PMHx: 18:25 Atrial Fib; CHF; COPD; Diabetes - NIDDM; Hypertension; Hypothyroidism; PTSD; Sleep ll1 Apnea; - PSHx: 18:25 prostate CA; ll1 - Social history:: Smoking status: Patient/guardian denies using tobacco, the patient reports quitting approximately 2 years ago, Patient/guardian denies using alcohol, street drugs. Screenin:00 Abuse screen: Denies threats or abuse. Nutritional screening: No deficits noted. jb4 Tuberculosis screening: No symptoms or risk factors identified. Fall Risk None identified. Assessment: 19:00 General: Appears in no apparent distress. comfortable, Behavior is calm, cooperative, jb4 appropriate for age. Pain: Denies pain. Neuro: Level of Consciousness is awake, alert, obeys commands, Oriented to person, place, time, situation. Cardiovascular: Patient's skin is warm and dry. Respiratory: Airway is patent Respiratory effort is even, unlabored, Respiratory pattern is regular, symmetrical. GI: Abdomen is round non-distended, PT has multiple sealed and scabbed over surgical sites on the abdomen. The Left most site is not closed, and is draining serous fluid. : Weathers in place to gravity drainage Urine is clear. EENT: No signs and/or symptoms were reported regarding the EENT system. Derm: Skin Skin is grossly intact, open surgical incision noted to the left lower abdomen. Skin is pink, warm \T\ dry. Musculoskeletal: Circulation, motion, and sensation intact. Range of motion: intact in all extremities. 19:20 Reassessment: Dressing changed for open surgical site. jb4 20:30 Reassessment: Patient appears in no apparent distress at this time. Patient and/or jb4 family updated on plan of care and expected duration. Pain level reassessed. Patient is alert, oriented x 3, equal unlabored respirations, skin warm/dry/pink. Dressing replied with ABD pad and steri strip. Pt continues to deny pain. 20:50 Reassessment: Patient and/or family updated on plan of care and expected duration. Pain jb4 level reassessed. Patient is alert, oriented x 3, equal unlabored respirations, skin warm/dry/pink. Pt verbalized understanding of D/c and follow up instructions. Denies questions or concerns. Ambulated out of ED with steady gait. Patient denies pain at this time. Vital Signs: 18:26 BP 118 / 72; Pulse 72; Resp 18; Temp 97.6; Pulse Ox 99% ; Weight 109.32 kg; Height 6 ll1 ft. 2 in. (187.96 cm); Pain 0/10; 19:20 BP 113 / 70; Pulse 78; Resp 18; Pulse Ox 99% on R/A; Pain 0/10; jb4 20:15 BP 124 / 78; Pulse 74; Resp 16; Pulse Ox 100% on R/A; Pain 0/10; jb4 18:26 Body Mass Index 30.94 (109.32 kg, 187.96 cm) ll1 ED Course: 18:20 Patient arrived in ED. bp1 18:26 Arm band placed on. ll1 18:28 Triage completed. ll1 18:32 Patient notified of wait time. ll1 19:00 Patient has correct armband on for positive identification. Bed in low position. Call jb4 light in reach. Side rails up X 1. Pulse ox on. NIBP on. 19:02 Cecilio Henson, RICKY is Primary Nurse. jb4 19:37 Emanuel Boyle MD is Attending Physician. tw4 20:50 No provider procedures requiring assistance completed. Patient did not have IV access jb4 during this emergency room visit. Administered Medications: No medications were administered Outcome: 20:06 Discharge ordered by . tw4 20:50 Discharged to home ambulatory. jb4 20:50 Condition: stable 20:50 Discharge instructions given to patient, Instructed on discharge instructions, follow up and referral plans. wound care, Demonstrated understanding of instructions, follow-up care, wound care. 20:55 Patient left the ED. jb4 Signatures: Cecilio Henson, RN RN jb4 Emanuel Boyle MD MD tw4 Annika Lester RN RN ll1 Ruma Powell [facility]
--- NOTE | 2020-02-16 20:06 | EDPHYS ---
Physician Documentation [facility] Name: Cecilio Robles Age: 69 yrs Sex: Male : 1950 Arrival Date: 02/16/2020 Time: 18:20 Bed 23 Private MD: ED Physician Emanuel Boyle HPI: 02/15 19:54 This 69 yrs old Male presents to ER via Ambulatory with complaints of Post surgical tw4 problem. 19:54 Patient presents to ED for recheck of: surgical wound. The affected area is on the tw4 right lower quadrant and left lower quadrant. The patient has not experienced similar symptoms in the past. Historical: - Allergies: 18:25 No Known Allergies; ll1 - Home Meds: 19:40 albuterol sulfate 90 mcg/actuation Inhl HFAA 2 puffs every 4 hours [Active]; alogliptin jb4 25 mg oral tab 1 tab once daily [Active]; atorvastatin 80 mg oral tab 0.5 tab once daily [Active]; budesonide-formoterol inhalation inhalation 2 puffs 2 times per day [Active]; cholecalciferol (vitamin D3) 2,000 unit oral tab 0.5 tab daily [Active]; cyanocobalamin (vitamin B-12) 1,000 mcg/mL injection soln 1 mL once moly [Active]; diltiazem HCl 240 mg Oral cp24 1 cap once daily [Active]; docusate sodium 100 mg Oral cap 1 cap once daily [Active]; finasteride 5 mg oral tab 1 tab once daily [Active]; fluticasone propionate (bulk) miscellaneous [Active]; furosemide 20 mg Oral tab 1 tab once daily [Active]; glipizide 10 mg Oral tab 2 tabs 2 times per day [Active]; levothyroxine 150 mcg tab 1 tab once daily [Active]; lisinopril 40 mg Oral tab 1 tab once daily [Active]; magnesium citrate oral soln every 6 hours [Active]; metformin 850 mg Oral tab 1 tab 3 times per day [Active]; metoprolol succinate 100 mg oral Tb24 1 tab once daily [Active]; omeprazole 20 mg Oral cpDR 1 cap once daily [Active]; prazosin 5 mg Oral cap 1 cap nightly [Active]; rivaroxaban oral 20 mg oral 1 tab nightly [Active]; spironolactone 25 mg Oral tab 1 tab once daily [Active]; - PMHx: 18:25 Atrial Fib; CHF; COPD; Diabetes - NIDDM; Hypertension; Hypothyroidism; PTSD; Sleep ll1 Apnea; - PSHx: 18:25 prostate CA; ll1 - Social history:: Smoking status: Patient/guardian denies using tobacco, the patient reports quitting approximately 2 years ago, Patient/guardian denies using alcohol, street drugs. ROS: 19:54 Constitutional: Negative for fever, chills, and weight loss, Eyes: Negative for injury, tw4 pain, redness, and discharge, Cardiovascular: Negative for chest pain, palpitations, and edema, Respiratory: Negative for shortness of breath, cough, wheezing, and pleuritic chest pain, Abdomen/GI: Negative for abdominal pain, nausea, vomiting, diarrhea, and constipation, Back: Negative for injury and pain, Neuro: Negative for headache, weakness, numbness, tingling, and seizure. 19:54 Skin: Positive for surgical wound. Exam: 19:54 Constitutional: This is a well developed, well nourished patient who is awake, alert, tw4 and in no acute distress. Head/Face: Normocephalic, atraumatic. Chest/axilla: Normal chest wall appearance and motion. Nontender with no deformity. No lesions are appreciated. Cardiovascular: Regular rate and rhythm with a normal S1 and S2. No gallops, murmurs, or rubs. Normal PMI, no JVD. No pulse deficits. Respiratory: Lungs have equal breath sounds bilaterally, clear to auscultation and percussion. No rales, rhonchi or wheezes noted. No increased work of breathing, no retractions or nasal flaring. Abdomen/GI: Soft, non-tender, with normal bowel sounds. No distension or tympany. No guarding or rebound. No evidence of tenderness throughout. MS/ Extremity: Pulses equal, no cyanosis. Neurovascular intact. Full, normal range of motion. Neuro: Awake and alert, GCS 15, oriented to person, place, time, and situation. Cranial nerves II-XII grossly intact. Motor strength 5/5 in all extremities. Sensory grossly intact. Cerebellar exam normal. Normal gait. 19:54 Skin: Wound recheck: Suture laceration closure: mild drainage, wound draining clear fluid from wound in LLQ. Vital Signs: 18:26 BP 118 / 72; Pulse 72; Resp 18; Temp 97.6; Pulse Ox 99% ; Weight 109.32 kg; Height 6 ll1 ft. 2 in. (187.96 cm); Pain 0/10; 19:20 BP 113 / 70; Pulse 78; Resp 18; Pulse Ox 99% on R/A; Pain 0/10; jb4 20:15 BP 124 / 78; Pulse 74; Resp 16; Pulse Ox 100% on R/A; Pain 0/10; jb4 18:26 Body Mass Index 30.94 (109.32 kg, 187.96 cm) ll1 MDM: 19:37 Patient medically screened. tw4 19:54 Data reviewed: vital signs, nurses notes. Data interpreted: Pulse oximetry: tw4 Interpretation: normal. Counseling: I had a detailed discussion with the patient and/or guardian regarding: the historical points, exam findings, and any diagnostic results supporting the discharge/admit diagnosis. Special discussion: I discussed with the patient/guardian in detail that at this point there is no indication for admission to the hospital. It is understood, however, that if the symptoms persist or worsen the patient needs to return immediately for re-evaluation. ED course: applied steri strip and abdominal dressing. Administered Medications: No medications were administered Disposition: 02/16/20 20:06 Discharged to Home. Impression: Encounter for change or removal of surgical wound dressing. - Condition is Stable. - Discharge Instructions: How to Change Your Dressing, Stitches, [place], or Adhesive Wound Closure, Incision Care, Adult. - Medication Reconciliation Form, Thank You Letter, Antibiotic Education, Prescription Opioid Use form. - Follow up: Private Physician; When: Upon discharge from the Emergency Department; Reason: Recheck today's complaints, Continuance of care, Re-evaluation by your physician. - Problem is new. - Symptoms have improved. Signatures: Cecilio Henson, RN RN jb4 Emanuel Boyle MD MD tw4 Annika Lester RN RN ll1 Corrections: (The following items were deleted from the chart) 20:55 20:06 02/16/2020 20:06 Discharged to Home. Impression: Encounter for change or removal jb4 of surgical wound dressing. Condition is Stable. Forms are Medication Reconciliation Form, Thank You Letter, Antibiotic Education, Prescription Opioid Use. Follow up: Private Physician; When: Upon discharge from the Emergency Department; Reason: Recheck today's complaints, Continuance of care, Re-evaluation by your physician. Problem is new. Symptoms have improved. tw4
[2020-02-16 20:59] VITALS: TEMP 97.6
[2020-02-16 21:02] VITALS: BP 124/78; O2SAT 100
== END 2020-02-16 20:55 | disposition home or self-care (01) ==
LOC: ER 18:13
DX: Z48.01 Encounter for change or removal of surgical wound dressing (principal); I10 Essential (primary) hypertension; E11.9 Type 2 diabetes mellitus without complications; E03.9 Hypothyroidism, unspecified; J44.9 Chronic obstructive pulmonary disease, unspecified; I48.91 Unspecified atrial fibrillation; Z85.46 Personal history of malignant neoplasm of prostate
CPT/HCPCS: 99283

== ENCOUNTER 2020-02-19 08:48 | Emergency (ER) | payer OTHER ==
--- OUTSIDE RECORDS SUMMARY | 2020-02-19 09:22 | XMS REPORT | Continuity of Care Document ---
:1950 Author Organization [facility] t Address [address] [place] [address] Care Team Providers Name Role Phone Glenys Gutiérrez MD Primary Care Physician Tray Gutiérrez MD Attending Clinician Payers Payer Name Policy Type Policy Number Effective Date Expiration Date S tho [id number] [id number] 2015 [place] [id number] 00:00:00 [facility] 07/2014-Prese ntMilitary Problems Condition Condition Condition Status Onset Resolution Last Treating Co mments Source Name Details Category Date Date Treatment Clinician Date Influenza Influenza Disease Active Jose Francisco ston 3-11 [facility] 00:00: st 00 Normocytic Normocytic Disease Active [place] anemia anemia 3-11 [facility] 00:00: st 00 Sleep Sleep Disease Active 2019 Overview: Candido burrows apnea apnea 1-14 Uses CPAP [facility] 00:00: Monitored st 00 at [facility] refreshed , relaxed every morning Able to sleep well with CPAPLast Assessmen t & Plan: Reports feeling refreshed and relaxed will continue using CPAP machine Hypothyroi Hypothyroi Disease Active Overview : [place] dism dism 1-14 Taking [facility] (acquired) (acquired) 00:00: Levothyro st 00 xine 200 mcg denies constipat ion, fatigues TSH wnl- done at the [facility] 08/2018 Last Assessmen t & Plan: continue Levothyro xine 200mcg Chronic Chronic Disease Active 2017-07 Overview: Tucker chamberlain obstructiv obstructiv 0-08 C/o Me thodi e e 00:00: cough, st pulmonary pulmonary 00 expectora disease disease tionDecre ased number of cigarette s to 4-5/day has COPD - on Symbicort , Spiriva uses ALbuterol MDI- 4times/da y, Uses O2 at night at homeLast Assessmen t & Plan: COPD is stableUse s SPiriva, Symbicort and Albuterol Tremor of Tremor of Disease Active 2017-07 Overview: [place] left hand left hand 0-08 C/o Meth [...] t on on 00 gets meds from [facility] taking Metoprolo l 12. 5mg bid , Digoxin, Diltiazem Denies any palpitati ons, SOB.Last Assessmen t & Plan: Continue Diltiazem , Xarelto Diabetes Diabetes Disease Active 2017-07 Overview: Baljinder cid mellitus mellitus 0-08 Last [facility] i type 2 in type 2 in 00:00: HbA1C 7.6 s t obese obese 00 at [facility] Jul 07, 2018- brings labs to [...] Anemia due Disease Active 2017-07 Overview : [place] to vitamin to vitamin 0-08 Labs at [facility] B12 [facility] deficiency 2017 showed he had vit b 12 deficienc yTaking Vit b 12 shots at the [place] Last Assessmen t & Plan: Vit b 12 shots every month Allergies, Adverse Reactions, Alerts This patient has no known allergies or adverse reactions. Family History Family Member Diagnosis Comments Start Date Stop Date Source Natural father Prostate cancer [place] [facility] Natural mother Diabetes [facility] Social History Social Habit Start Date Stop Date Quantity Comments Source History of tobacco Cigarette Smoker [place] use [facility] Sex Assigned At [place] [facility] Cigarettes smoked 2020-02-16 2020-02-16 [place] current (pack per 00:00:00 00:00:[address] ) - Reported Cigarette 2020-02-16 2020-02-16 [place] pack-years 00:00:00 00:00:00 [facility] Alcohol intake 2020-02-16 2020-02-16 Current drinker [place] 00:00:00 00:00:00 of alcohol [facility] (finding) Alcohol Comment 2016-05-07 2016-05-07 0-2 every 2 [place] 00:00:00 00:00:00 months [facility] Smoking Status Start Date Stop Date Source Current every day smoker 2020-02-16 00:00:00 Jose Francisco connors [facility] Medications Ordered Filled Start Stop Current Ordering Indication Dosage Frequency Signature Comments Components Source Medication Medication Date Date Medication? Clinician (SIG) Name Name spironolact Yes 25mg QD Take 25 mg [place] one 8-10 by mouth [facility] (ALDACTONE) 13:56: daily. st 25 MG 16 tablet sulfamethox 2020-0 Yes 1{tbl} Q.5D Take 1 [place] [...] mouth twice daily metFORMIN 2020-0 Yes 850mg [id number] Take 850 [place] (GLUCOPHAGE 8-10 [id number] mg by Joy appleodi ) 850 MG 13:48: 3D mouth 3 [...] capsule 24 omega-3 2020-0 Yes Take by [place] fatty 8-10 mouth. [facility] acids-vitam 13:48: st in E (FISH 24 OIL) 1,000 mg capsule cholecalcif 2020-0 Yes 400U [id number] Take 400 [place] leno, 8-10 [id number] Units by [place] balwinder vitamin D3, 13:48: [...] st mg tablet 24 mupirocin 2020-0 Yes [id number] Apply [place] (BACTROBAN) 8-10 [id number] topically [facility] 2 % 13:48: 3D 3 (three) st ointment 24 times a day. buPROPion 2020-0 Yes 300mg QD Take 300 Jose Francisco ston XL 8-10 mg by [facility] (WELLBUTRIN 13:48: mouth st XL) 300 MG 24 daily. 24 hr tablet atorvastati 2019-0 Yes 80mg QD Take 80 mg [place] n (LIPITOR) 8-10 by mouth Meth balwinder 80 MG 13:48: daily. st tablet 24 alogliptin 0 Yes 25mg QD Take 25 mg H [...] 2020- No Chronic 2{puff} Q6H Inhale 2 [place] (PROAIR 11-27 05-22 obstructive puffs Met hodi HFA,PROVENT 00:00: 23:[address] [place] 00 :00 disease, (six) HFA,VENTOLI unspecified hours as N HFA) 90 COPD type needed for mcg/actuati (HCC) wheezing. on inhaler Immunizations Ordered Immunization Filled Immunization Date Status Commen ts Source Name Name FLUZONE HIGH-DOSE PF 2019-04-13 Completed [place] 00:00:00 [facility] Pneumococcal 2018-11-27 Completed [place] Polysaccharide 00:00:00 [facility] Influenza, 2018-02-24 Completed [place] Unspecified 00:00:00 [facility] Pneumococcal 2016-10-29 Completed [place] Conjugate 13-Valent 00:00:00 Meth[place] dist FLUZONE HIGH-DOSE PF 2016-04-11 Completed [place] 00:00:00 [facility] Vital Signs Vital Name Observation Time Observation Value Comments Source Systolic blood 2020-02-15 13:54:00 130 mm[Hg] [place] [facility] pressure Diastolic blood 2020-02-15 13:54:00 70 mm[Hg] [place] [facility] pressure Body temperature 2020-02-15 13:54:00 36.72 Renée [place] chamberlain [facility] Body height 2020-02-15 13:54:00 188 cm [place] Body weight 2020-02-15 13:54:00 112.946 kg [place] BMI 2020-02-15 13:54:00 31.97 kg/m2 [place] Heart rate 2019-06-16 13:27:00 74 /min [place] Respiratory rate 2019-06-16 13:27:00 18 /min Tucker chamberlain [facility] Oxygen saturation in 2019-06-16 13:27:00 96 /min [place] Arterial blood by Pulse oximetry Procedures This patient has no known procedures. Plan of Care Planned Activity Planned Date Details Comments Source Future Scheduled 2024-03-08 COLONOSCOPY SCREENING [place] [facility] Test 00:00:00 [code = COLONOSCOPY SCREENING] Future Scheduled 2020-03-08 INFLUENZA VACCINE [place] [facility] Test 00:00:00 [code = INFLUENZA VACCINE] Future Scheduled 2000 SHINGLES VACCINES [place] [facility] Test 00:00:00 (#1) [code = SHINGLES VACCINES (#1)] Future Scheduled 1960 DIABETIC FOOT EXAM [place] [facility] Test 00:00:00 [code = DIABETIC FOOT EXAM] Future Scheduled 1950 DIABETIC RETINAL EYE Jose Francisco ston [facility] Test 00:00:00 EXAM [code = DIABETIC RETINAL EYE EXAM] Encounters Start End Encounter Admission Attending Care Care Encounter Source Date/Time Date/Time Type Type Clinicians Facility Department ID 2020-02-15 2020-02-15 Outpatient [facility] [id number] [place] 00:00:00 00:00:00 GLENYS [address] Results This patient has no known results.
--- OUTSIDE RECORDS SUMMARY | 2020-02-19 09:22 | XMS REPORT | Clinical Summary ---
:1950 Author Organization [facility] Address [address] [place] [address] Care Team Providers Name Role Phone Glenys Gutiérrez MD Primary Care Provider [phone] Allergies No Known Allergies Medications Medication [...] apnea 07/21/2018 Overview: Uses CPAP Monitored at [facility] Feels refreshed, relaxed every morning Able to sleep well with CPAP Last Assessment & Plan: Reports feeling refreshed and relaxed will continue using CPAP machine Hypothyroidism (acquired) 07/21/2018 Overview: Taking Levothyroxine 200 mcg denies constipation, fatigues TSH wnl- done at the [facility] 08/2018 Last Assessment & Plan: continue Levothyroxine [...] 04/14/2018 Overview: On Xarelto gets meds from [facility] taking Metoprolol 12. 5mg bid , Digoxin , Diltiazem Denies any palpitations, SOB. Last Assessment & Plan: Continue Diltiazem, Xarelto Diabetes mellitus type 2 in obese 04/14/2018 Overview: Last HbA1C 7.6 at [facility] Jul 07, 2018- brings labs to clinic [...] vitamin B12 deficiency 04/14/2018 Overview: Labs at [facility] in Feb 2018 showed he had vit b 12 deficiency Taking Vit b 12 shots at the [facility] Last Assessment & Plan: Vit b 12 shots every month Encounters Date Type Specialty Care Team Description 02/15/2020 Telephone Consult Family Medicine Glenys Gutiérrez Pros israel cancer ([facility]) (Primary Dx); MD Tray Diabetes mellit type 2 in obese ([facility]); Chronic atrial fibrillation; Hypothyroidism (acquired); Mixed hyperlipi demia; PTSD (post-trau matic stress disorder); Chronic bronchi tis, unspecified chronic bronchitis type ([facility]) 12/29/2019 Telephone Family Medicine Glenys Gutiérrez MD 10/02/2019 Telephone Family Medicine Glenys Gutiérrez MD 09/23/2019 Telephone Family Medicine Glenys Gutiérrez MD 06/16/2019 Office Visit Family Medicine Glenys Gutiérrez Acute mid line low back pain without sciatica (Primary Dx); MD Tray Acute midline t horacic back pain; Obesity (BMI 30 .0-34.9) after 02/18/2019 Immunizations Name Administration Dates Next Due FLUZONE [...] PM CDT Pulse 74 06/16/2019 1:27 PM 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 Temperature 36.7 C (98.1 F) 02/15/2020 1:54 PM CDT Respiratory Rate 18 06/16/2019 1:27 PM 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 Oxygen Saturation 96% 06/16/2019 1:27 PM 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 Inhaled Oxygen Concentration - - Weight 113 kg (249 lb) 02/15/2020 1:54 PM CDT Height 188 cm (6' 2") 02/15/2020 1:54 PM CDT Body Mass Index 31.97 02/15/2020 1:54 PM CDT Plan of Treatment Health Maintenance Due Date Last Done Comments DIABETIC RETINAL EYE EXAM 1950 DIABETIC FOOT EXAM 1960 SHINGLES VACCINES (#1) 2000 INFLUENZA VACCINE 03/08/2020 04/13/2019, 04/13/2019, 2017, Additional history exists COLONOSCOPY SCREENING 03/08/2024 03/08/2014 65+ PNEUMOCOCCAL VACCINE Completed 11/27/2018, 10/29/2016 Results Not on fileafter 02/18/2019 Advance Directives For more information, please contact: [phone] Type Date Recorded 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
--- NOTE | 2020-02-19 10:46 | EDPHYS ---
Physician Documentation [facility] Name: Cecilio Robles Age: 69 yrs Sex: Male : 1950 Arrival Date: 02/19/2020 Time: 08:52 Bed 7 Private MD: ED Physician Kemar Cardoso HPI: 02/18 18:22 This 69 yrs old Male presents to ER via Ambulatory with complaints of Problem kdr With Urinary Catheter. 18:22 The patient presents with a Weathers catheter problem, pain around the meatus from the kdr weathers. Onset: The symptoms/episode began/occurred acutely, just prior to arrival. Modifying factors: The symptoms are alleviated by nothing, the symptoms are aggravated by movement, pressure. Associated signs and symptoms: The patient has no apparent associated signs or symptoms. Severity of symptoms: At their worst the symptoms were mild, in the emergency department the symptoms are unchanged. The patient has not experienced similar symptoms in the past. 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 Historical: - PMHx: 09:06 CHF; Diabetes - NIDDM; Hypothyroidism; Hypertension; PTSD; Sleep Apnea; Atrial Fib; hb COPD; - PSHx: 09:06 prostate CA; Prostate; hb - Immunization history:: Adult Immunizations up to date. - Social history:: Smoking status: Patient denies any tobacco usage or history of. ROS: 18:22 Constitutional: Negative for fever, chills, and weight loss, Eyes: Negative for injury, kdr pain, redness, and discharge, Neck: Negative for injury, pain, and swelling, Cardiovascular: Negative for chest pain, palpitations, and edema, Respiratory: Negative for shortness of breath, cough, wheezing, and pleuritic chest pain. 18:22 : Positive for penile pain, of the meatus. Exam: 18:22 Constitutional: This is a well developed, well nourished patient who is awake, alert, kdr and in no acute distress. 18:22 : CVA tenderness, is absent, Male external genitalia: erythema, of the meatus is seen, that is mild, tenderness, of the meatus is noted, that is mild. Vital Signs: 09:03 BP 137 / 77; Pulse 82; Resp 16; Temp 98.2(O); Pulse Ox 100% on R/A; Pain 4/10; hb MDM: 10:37 ED course: [facility]. kdr 10:45 Patient medically screened. kdr 18:22 Data reviewed: vital signs, nurses notes. Counseling: I had a detailed discussion with kdr the patient and/or guardian regarding: the historical points, exam findings, and any diagnostic results supporting the discharge/admit diagnosis, the need for outpatient follow up. 02/18 10:19 Order name: Urine Dipstick--Ancillary (enter results) eb 02/18 09:44 Order name: Urine Dipstick-Ancillary (obtain specimen); Complete Time: 10:17 kdr 02/18 10:41 Order name: Misc. Order: Clean glans; Complete Time: 11:19 kdr Administered Medications: No medications were administered Disposition: 02/19/20 10:45 Discharged to Home. Impression: Inflamation of the meatus at the glans secondary to indwelling cath s/p porstatectomy. - Condition is Stable. - Blank Diagnosis Outline, Medication Reconciliation Form, Thank You Letter form. - Follow up: Private Physician; When: 2 - 3 days; Reason: If symptoms return, Further diagnostic work-up, Recheck today's complaints, Continuance of care, Re-evaluation by your physician. - Problem is new. - Symptoms have improved. Signatures: Dispatcher [employer] EDKemar Paul MD MD [facility] Rigoberto Neri, RICKY GARCÍA Claudine Nazario RN RN Corrections: (The following items were deleted from the chart) 11:25 10:45 02/19/2020 10:45 Discharged to Home. Impression: Inflamation of the meatus at the em glans secondary to indwelling cath s/p porstatectomy. Condition is Stable. Forms are Medication Reconciliation Form, Thank You Letter, Antibiotic Education, Prescription Opioid Use. Follow up: Private Physician; When: 2 - 3 days; Reason: If symptoms return, Further diagnostic work-up, Recheck today's complaints, Continuance of care, Re-evaluation by your physician. Problem is new. Symptoms have improved. kdr
--- NOTE | 2020-02-19 10:46 | ER ---
Nurse's Notes [facility] Name: Cecilio Robles Age: 69 yrs Sex: Male : 1950 Arrival Date: 02/19/2020 Time: 08:52 Bed 7 Private MD: Diagnosis: Inflamation of the meatus at the glans secondary to indwelling cath s/p porstatectomy Presentation: 02/18 09:03 Chief complaint: Catheter leaking and penile pain x 2 days. Pt is 10 days s/p hb prostatectomy. Coronavirus screen: At this time, the client does not indicate any symptoms associated with coronavirus-19. Ebola Screen: No symptoms or risks identified at this time. Initial Sepsis Screen: Does the patient meet any 2 criteria? No. Patient's initial sepsis screen is negative. Does the patient have a suspected source of infection? No. Patient's initial sepsis screen is negative. Risk Assessment: Do you want to hurt yourself or someone else? Patient reports no desire to harm self or others. Onset of symptoms was February 18, 2020. 09:03 Method Of Arrival: Ambulatory hb 09:03 Acuity: АННА 3 hb Historical: - PMHx: 09:06 CHF; Diabetes - NIDDM; Hypothyroidism; Hypertension; PTSD; Sleep Apnea; Atrial Fib; hb COPD; - PSHx: 09:06 prostate CA; Prostate; hb - Immunization history:: Adult Immunizations up to date. - Social history:: Smoking status: Patient denies any tobacco usage or history of. Screenin:06 Abuse screen: Denies threats or abuse. Denies injuries from another. Nutritional hb screening: No deficits noted. Tuberculosis screening: No symptoms or risk factors identified. Fall Risk None identified. Assessment: 09:50 General: Appears in no apparent distress. comfortable, Behavior is calm, cooperative, em appropriate for age, Denies fever. Pain: Complains of pain in pelvis Pain currently is 4 out of 10 on a pain scale. Neuro: Level of Consciousness is awake, alert, obeys commands, Oriented to person, place, time, situation, Appropriate for age. Cardiovascular: Capillary refill < 3 seconds Patient's skin is warm and dry. Respiratory: Airway is patent Respiratory effort is even, unlabored, Respiratory pattern is regular, symmetrical. GI: Abdomen is round non-distended, Patient currently denies abdominal pain. : Vasques in place to gravity drainage Urine is cloudy, Denies burning with urination, discharge. Derm: Skin is intact, is fragile, is thin, Skin is pink, warm \T\ dry. 10:17 Reassessment: Patient appears in no apparent distress at this time. Patient and/or em family updated on plan of care and expected duration. Pain level reassessed. Patient is alert, oriented x 3, equal unlabored respirations, skin warm/dry/pink. 11:20 Reassessment: Patient appears in no apparent distress at this time. Patient and/or em family updated on plan of care and expected duration. Pain level reassessed. Patient is alert, oriented x 3, equal unlabored respirations, skin warm/dry/pink. applied viscous lidocaine to the meatus. Vital Signs: 09:03 BP 137 / 77; Pulse 82; Resp 16; Temp 98.2(O); Pulse Ox 100% on R/A; Pain 4/10; hb ED Course: 08:52 Patient arrived in ED. mr 09:05 Triage completed. hb 09:06 Arm band placed on. hb 09:08 Rigoberto Neri, RN is Primary Nurse. em 09:25 Kemar Cardoso MD is Attending Physician. kdr 09:43 called the [facility]rology clinic at [phone] / Natividad connected me with the nurse eb phone in the clinic where i left a message for someone to call back for Dr. Cardoso regarding a patient consultation. 10:15 Patient has correct armband on for positive identification. Placed in gown. Bed in low em position. Call light in reach. 11:24 No provider procedures requiring assistance completed. Patient did not have IV access em during this emergency room visit. Administered Medications: No medications were administered Outcome: 10:45 Discharge ordered by . kdr 11:24 Discharged to home ambulatory. em 11:24 Condition: good 11:24 Discharge instructions given to patient, Instructed on discharge instructions, follow up and referral plans. Demonstrated understanding of instructions, follow-up care, how to apply viscous lidocaine on meatus 11:25 Patient left the ED. em Signatures: Kemar Cardoso MD MD kdr Rivera, Mary mr Rigoberto Neri, RN RN em Claudine Nazario RN RN Tiffany Butterfield
[2020-02-19] MEDS ORDERED: LIDOCAINE VISCOUS 2% SOLN 15 ML UDC ONE ×2 (11:01→11:22)
[2020-02-19 11:18] LABS: Urine Blood 3+ (NEG); Urine Glucose NEGATIVE (NEG); Urine Protein 2+ (NEG)
[2020-02-19 11:50] VITALS: BP 137/77; TEMP 98.2; O2SAT 100
== END 2020-02-19 11:25 | disposition home or self-care (01) ==
LOC: ER 08:48
DX: T83.091A Other mechanical complication of indwelling urethral catheter, initial encounter (principal); N48.29 Other inflammatory disorders of penis; Z98.890 Other specified postprocedural states; Z90.79 Acquired absence of other genital organ(s); Z85.46 Personal history of malignant neoplasm of prostate
CPT/HCPCS: 81003; 99281

== ENCOUNTER 2020-09-14 17:49 | Emergency (ER) | payer OTHER ==
--- OUTSIDE RECORDS SUMMARY | 2020-09-14 17:53 | XMS REPORT | Continuity of Care Document ---
:1950 Author Organization [facility] t Address [address] [place] [address] Care Team Providers Name Role Phone Estrellita GARCÍA, Hien Bowden Attending Clinician Unavailable July MOSLEY, S Attending Clinician Adilene MOSLEY, J Attending Clinician Andres MOSLEY Attending Clinician OSCAR Attending Clinician Unavailable Adilene MOSLEY, J Admitting Clinician Problems This patient has no known problems. Allergies, Adverse Reactions, Alerts This patient has no known allergies or adverse reactions. Medications This patient has no known medications. Procedures This patient has no known procedures. Encounters Start End Encounter Admission Attending Care Care Encounter Source Date/Time Date/Time Type Type Clinicians Facility Department ID 2020-09-14 2020-09-14 Transition Ronal Haro [id number] 00:00:00 00:00:00 of Care Hien Schmid [id number] [place] [id number] 2020-09-12 2020-09-13 [facility] Olvin Mcdowell [id number] 03:52:00 15:37:00 Encounter Stanley Heady [id number] [facility] [id number] 2020-09-07 2020-09-07 Office Andres CORAMESH [id number] 12:45:47 13:42:07 Visit Casi Elicia [id number] [place] [id number] [place]met [id number] [address] 2020-03-24 2020-03-24 Outpatient [facility] [id number] [place] 00:00:00 00:00:[address] 2020-03-24 2020-03-24 Outpatient [facility] [id number] [place] 00:00:00 00:00:00 DB [address] 2020-03-07 2020-03-07 Outpatient [facility] [id number] [address] [place] 00:00:00 00:00:00 DB [address] 2020-02-15 2020-02-15 [facility] [id number] [place] 00:00:00 00:00:[address] DB [address] Results This patient has no known results.
[2020-09-14 19:08] LABS: Absolute Lymphocytes (CBC) 0.7 K/uL (0.7-4.9); Basophils % 1.2 % (0-1.3); Hematocrit 27.5 % (39.6-49.0); Lymphocytes % 15.5 % (15.3-44.8); MPV 7.9 fL (7.6-11.3)
[2020-09-14] MEDS ORDERED: MORPHINE 4 MG/ML SYR ONE ×2 (19:09→23:00)
[2020-09-14] MEDS ORDERED: ONDANSETRON 4 MG/2 ML VIAL ONE ×2 (19:09→19:52)
[2020-09-14 19:18] LABS: ALT/SGPT 14 U/L (12-78); AST/SGOT 12 U/L (15-37); Albumin 3.2 g/dL (3.4-5.0); Alkaline Phosphatase 85 U/L (45-117); BUN Blood Urea Nitrogen 9 mg/dL (7-18); Bicarbonate 31 mmol/L (21-32); Bilirubin Direct 0.1 mg/dL (0-0.2); Bilirubin Total 0.4 mg/dL (0.2-1.0); Glucose Level 87 mg/dL (74-106); Lipase 68 U/L (73-393); Potassium 3.4 mmol/L (3.5-5.1); Protein, Total 7.1 g/dL (6.4-8.2); Sodium Level 143 mmol/L (136-145)
--- NOTE | 2020-09-14 20:10 | RAD REPORT ---
EXAM DESCRIPTION: CT - Abdomen Pelvis W Contrast - 09/14/2020 7:45 pm CLINICAL HISTORY: Abdominal pain COMPARISON: none. TECHNIQUE: Computed axial tomography of the abdomen pelvis was obtained. 100 cc Isovue-300 was admin istered intravenously. Oral contrast was not requested which limits evaluation of bowel. All CT scans are performed using dose optimization technique as appropriate and may include automated exposure control or mA/KV adjustment according to patient size. FINDINGS: The liver, spleen, pancreas, adrenal and kidneys do not demonstrate a significant abnormal ity. . The stomach, duodenum, jejunum and portion of the ileum are moderately to markedly dilated. A loop of small bowel enters a right inguinal hernia which contains fluid. Small left inguinal hernia contains fat. Diverticula stem the colon without evidence of diverticulitis. IMPRESSION: Right inguinal hernia obstructs ileum resulting in a moderate to marked small bowel obst ruction
[2020-09-14] MEDS ORDERED: METRONIDAZOLE 500mg IVPB 500 MG/100 ML BAG IV ONE (20:45)
[2020-09-14] MEDS ORDERED: CIPROFLOXACIN 400mg IV 400 MG/200 ML BAG IV ONE (20:45)
--- NOTE | 2020-09-14 20:57 | EDPHYS ---
Physician Documentation [facility] Name: Cecilio Robles Age: 70 yrs Sex: Male : 1950 Arrival Date: 09/14/2020 Time: 17:56 Bed 2 Private MD: ED Physician Emanuel Boyle HPI: 09/14 18:30 This 70 yrs old Male presents to ER via Wheelchair with complaints of Hernia. cp 18:30 The patient presents with abdominal pain. cp 18:30 Onset: The symptoms/episode began/occurred today. cp 18:30 Associated signs and symptoms: Pertinent positives: nausea, vomiting, Pertinent cp negatives: blood in stools, chest pain, constipation, diarrhea, fever. Historical: - Allergies: 18:08 No Known Allergies; tw2 - PMHx: 18:08 Atrial Fib; CHF; COPD; Hypertension; Diabetes - NIDDM; Hypothyroidism; PTSD; Sleep tw2 Apnea; - PSHx: 18:08 prostate CA; Prostate; tw2 - Immunization history:: Client reports receiving the 2nd dose of the Covid vaccine, Date received: August 30, 2020 Client reports receiving the 1st dose of the Covid vaccine, July 22, 2020. - Social history:: Smoking status: . ROS: 18:35 Constitutional: Negative for body aches, chills, poor PO intake. cp 18:35 Eyes: Negative for injury, pain, redness, and discharge. cp 18:35 Cardiovascular: Negative for chest pain, edema, palpitations. 18:35 Respiratory: Negative for cough, shortness of breath, wheezing. 18:35 Abdomen/GI: Positive for abdominal pain, nausea and vomiting, Negative for diarrhea, constipation, anorexia, black/tarry stool, rectal bleeding. 18:35 Back: Negative for radiated pain. 18:35 Neuro: Negative for altered mental status, dizziness, headache, weakness. 18:35 All other systems are negative. Exam: 18:40 Constitutional: The patient appears in no acute distress, alert, awake, cp non-diaphoretic, non-toxic, well developed, well nourished, uncomfortable. 18:40 Head/Face: Normocephalic, atraumatic. cp 18:40 Eyes: Periorbital structures: appear normal, Conjunctiva: normal, no exudate, no injection, Sclera: no appreciated abnormality, Lids and lashes: appear normal, bilaterally. 18:40 ENT: External ear(s): are unremarkable, Nose: is normal, Mouth: Lips: moist, Oral mucosa: moist, Posterior pharynx: Airway: no evidence of obstruction, patent. 18:40 Chest/axilla: Inspection: normal, Palpation: is normal, no crepitus, no tenderness. 18:40 Cardiovascular: Rate: normal, Rhythm: regular, Edema: ankle edema, that is mild, JVD: is not appreciated. 18:40 Respiratory: the patient does not display signs of respiratory distress, Respirations: normal, no use of accessory muscles, no retractions, labored breathing, is not present, Breath sounds: are clear throughout, no decreased breath sounds. 18:40 Abdomen/GI: Inspection: distension, that is moderate, mid line surgical scar, Bowel sounds: active, all quadrants, Palpation: soft, in all quadrants, moderate abdominal tenderness, in all quadrants, voluntary guarding, is elicited in all quadrants, Hernia: noted in the right inguinal area, tenderness, that is moderate. 18:40 Back: CVA tenderness, is absent. 18:40 Skin: no rash present. Vital Signs: 18:02 BP 131 / 89; Pulse 75; Resp 17; Temp 98(TE); Pulse Ox 99% on R/A; Weight 98.88 kg; tw2 Height 6 ft. 2 in. (187.96 cm); Pain 10/10; 19:20 BP 135 / 89; Pulse 70; Resp 16; Pulse Ox 98% ; rr5 20:30 BP 148 / 75; Pulse 79; Resp 17; Pulse Ox 98% ; rr5 21:20 BP 126 / 62; Pulse 76; Resp 17; Pulse Ox 98% ; rr5 22:29 BP 144 / 96; Pulse 77; Resp 16; Temp 98.4; Pulse Ox 98% ; rr5 23:30 BP 144 / 89; Pulse 70; Resp 17; Pulse Ox 99% ; rr5 18:02 Body Mass Index 27.99 (98.88 kg, 187.96 cm) tw2 18:02 "10 when it comes, it comes and goes" tw2 MDM: 18:15 Patient medically screened. cp 19:00 Differential diagnosis: bowel obstruction, non-specific abd pain, pancreatitis, cp Ureterolithiasis, urinary tract infection. 20:20 Data reviewed: vital signs, nurses notes, lab test result(s), radiologic studies, CT cp scan, I have discussed the patient's presentation/case with the attending Emergency Department Physician;. 20:48 Physician consultation: was contacted at 20:40, regarding regarding transfer, to [facility]. cp patient's condition, spoke with DR Casi Campos, general surgeon, will consult on patient and request transfer to services of hospitalist. 21:16 Physician consultation: was contacted at 21:10, regarding regarding transfer, to [facility]. cp patient's condition, accepting physician will be DR Vang, hospitalist. 09/14 18:28 Order name: Basic Metabolic Panel 09/14 18:28 Order name: CBC with Diff 09/14 18:28 Order name: Hepatic Function 09/14 18:28 Order name: Lipase 09/14 19:18 Order name: Basic Metabolic Panel; Complete Time: 19:30 EDMS 09/14 20:15 Interpretation: Normal except: K 3.4; CA 7.3. 09/14 19:18 Order name: Liver (Hepatic) Function; Complete Time: 19:30 EDMS 09/14 19:30 Interpretation: Normal except: AST 12; ALB 3.2; GLOB 3.9; A/G 0.8. 09/14 18:28 Order name: CT Abd/Pelvis - IV Contrast Only 09/14 19:18 Order name: Lipase; Complete Time: 19:30 EDMS 09/14 19:25 Order name: CBC with Automated Diff; Complete Time: 19:30 EDMS 09/14 19:31 Interpretation: Normal except: RBC 3.00; HGB 9.3; HCT 27.5; RDW 17.8; GEN% 74.0. 09/14 20:11 Order name: CT; Complete Time: 20:14 EDMS 09/14 20:57 Interpretation: Report reviewed. 09/14 20:16 Order name: COVID-19 : Document "Date of Symptom Onset" if Symptomatic. 09/14 22:32 Order name: CORONAVIRUS EDUT 09/14 23:24 Order name: SARS-COV-2 RT PCR [facility] 09/14 18:28 Order name: IV Saline Lock; Complete Time: 18:48 09/14 18:28 Order name: Labs collected and sent; Complete Time: 18:48 cp 09/14 20:14 Order name: NG Tube; Complete Time: 21:32 cp 09/14 20:16 Order name: NPO; Complete Time: 20:26 cp Administered Medications: 18:56 Drug: Zofran (Ondansetron) 4 mg Route: IVP; Site: right antecubital; jd3 19:20 Follow up: Response: No adverse reaction rr5 18:56 Drug: morphine 4 mg Route: IVP; Site: right antecubital; jd3 20:00 Follow up: Response: No adverse reaction; RASS: Alert and Calm (0) rr5 19:36 Drug: Zofran (Ondansetron) 4 mg Route: IVP; Site: right antecubital; rr5 22:42 Follow up: Response: No adverse reaction rr5 20:41 Not Given (Physician Discretion): Ciprofloxacin 400 mg 200 ml IVPB once over 60 mins cp 20:41 Not Given (Physician Discretion): metroNIDAZOLE 500 mg 100 ml IVPB once over 30 mins cp 22:46 Drug: morphine 4 mg {Note: rass 0.} Route: IVP; Site: right antecubital; rr5 23:37 Follow up: Response: No adverse reaction; RASS: Alert and Calm (0) rr5 Disposition: 23:49 Co-signature as Attending Physician, Emanuel Boyle MD I agree with the assessment and tw4 plan of care. Disposition: 09/14/20 20:56 Transfer ordered to [facility]. Diagnosis are Other and unspecified intestinal obstruction, Unilateral inguinal hernia, with obstruction, without gangrene - right. - Reason for transfer: Higher level of care. - Accepting physician is DR Vang. - Condition is Stable. - Problem is new. - Symptoms have improved. Signatures: Dispatcher [employer] EDMS Lee Monzon PA PA cp Sabrina Jean Baptiste RN RN tw2 Jameson Mascorro RN RN Emanuel Pitts MD MD tw4 Grupo Spaulding RN RN rr5 Corrections: (The following items were deleted from the chart) 20:15 19:30 Normal except: K 3.4. cp cp 20:56 20:56 09/14/2020 20:56 [facility] Diagnosis is Other and cp unspecified intestinal obstruction. Reason for transfer: Higher level of care. Accepting physician is . Condition is Stable. Problem is new. Symptoms have improved. cp 21:13 20:56 09/14/2020 20:56 Transfer ordered to [facility]. Diagnosis is Other and cp unspecified intestinal obstruction; Unilateral inguinal hernia, with obstruction, without gangrene - right. Reason for transfer: Higher level of care. Accepting physician is . Condition is Stable. Problem is new. Symptoms have improved. cp 23:38 21:13 09/14/2020 20:56 Transfer ordered to [facility]. Diagnosis is Other and rr5 unspecified intestinal obstruction; Unilateral inguinal hernia, with obstruction, without gangrene - right. Reason for transfer: Higher level of care. Accepting physician is DR Vang. Condition is Stable. Problem is new. Symptoms have improved. cp
--- NOTE | 2020-09-14 20:57 | ER ---
Nurse's Notes [facility] Name: Cecilio Robles Age: 70 yrs Sex: Male : 1950 Arrival Date: 09/14/2020 Time: 17:56 Bed 2 Private MD: Diagnosis: Other and unspecified intestinal obstruction;Unilateral inguinal hernia, with obstruction, without gangrene-right Presentation: 09/14 18:02 Chief complaint: Patient states: i am having pain in my groin and my stomach, started tw2 Saturday, i went to ER in [place], they said it was a bowel obstruction, turns out it was a hernia where the bowel was seeping into the hernia, so they were going to do surgery in [place] and then they decided not to do the surgery this time because i had a bowel tear the prior month and they put 08/15/2020 i was lifeflighted and they cut me open like a fish and they repaired the bowel tear. Coronavirus screen: At this time, the client does not indicate any symptoms associated with coronavirus-19. Ebola Screen: Patient denies travel to an Ebola-affected area in the 21 days before illness onset. Initial Sepsis Screen: Does the patient meet any 2 criteria? No. Patient's initial sepsis screen is negative. Does the patient have a suspected source of infection? No. Patient's initial sepsis screen is negative. Risk Assessment: Do you want to hurt yourself or someone else? Patient reports no desire to harm self or others. Onset of symptoms was September 14, 2020. 18:02 Method Of Arrival: Wheelchair tw2 18:02 Acuity: АННА 2 tw2 Triage Assessment: 18:08 General: Appears in no apparent distress. uncomfortable, Behavior is calm, cooperative, tw2 appropriate for age. Pain: Complains of pain in abdomen and pelvis. Historical: - Allergies: 18:08 No Known Allergies; tw2 - PMHx: 18:08 Atrial Fib; CHF; COPD; Hypertension; Diabetes - NIDDM; Hypothyroidism; PTSD; Sleep tw2 Apnea; - PSHx: 18:08 prostate CA; Prostate; tw2 - Immunization history:: Client reports receiving the 2nd dose of the Covid vaccine, Date received: August 30, 2020 Client reports receiving the 1st dose of the Covid vaccine, July 22, 2020. - Social history:: Smoking status: . Screenin:57 Abuse screen: Denies threats or abuse. Nutritional screening: No deficits noted. jd3 Tuberculosis screening: No symptoms or risk factors identified. Fall Risk Ambulatory Aid- None/Bed Rest/Nurse Assist (0 pts). Gait- Normal/Bed Rest/Wheelchair (0 pts) Mental Status- Oriented to own ability (0 pts). Total Allen Fall Scale indicates No Risk (0-24 pts). Assessment: 18:56 General: Appears in no apparent distress. uncomfortable, Behavior is calm, cooperative, jd3 appropriate for age. Pain: Complains of pain in abdomen Quality of pain is described as sharp. Neuro: Level of Consciousness is awake, alert, obeys commands, Oriented to person, place, time, situation. Cardiovascular: Denies chest pain, Capillary refill < 3 seconds Patient's skin is warm and dry. Respiratory: Airway is patent Respiratory effort is even, unlabored, Respiratory pattern is regular, symmetrical, Denies cough, shortness of breath. GI: Abdomen is round non-distended, Abd is soft X 4 quads Abdomen is tender to palpation X 4 quads. Reports lower abdominal pain, upper abdominal pain, Patient currently denies constipation, diarrhea, nausea. : No signs and/or symptoms were reported regarding the genitourinary system. EENT: No signs and/or symptoms were reported regarding the EENT system. Derm: Skin is intact, Skin is dry, Skin is normal, Skin temperature is warm. Musculoskeletal: Circulation, motion, and sensation intact. Range of motion: intact in all extremities. 20:00 Reassessment: Patient appears in no apparent distress at this time. Patient is alert, rr5 oriented x 3, equal unlabored respirations, skin warm/dry/pink. awaiting for results. 21:00 Reassessment: Patient appears in no apparent distress at this time. Patient is alert, rr5 oriented x 3, equal unlabored respirations, skin warm/dry/pink. reassess by ED provider patient discussed the result and with additional order made. 21:50 Reassessment: Patient appears in no apparent distress at this time. Patient is alert, rr5 oriented x 3, equal unlabored respirations, skin warm/dry/pink. for transfer to other facility Patient states feeling better. Patient states symptoms have improved. 22:40 Reassessment: complaint of abdominal pain ED provider aware with order made and carried rr5 out. 23:08 Reassessment: report given to tiera from [facility]. rr5 23:36 Reassessment: Patient appears in no apparent distress at this time. Patient is alert, rr5 oriented x 3, equal unlabored respirations, skin warm/dry/pink. report given to MARKUS awake alert vital signs taken and recorded. Patient states symptoms have improved. Vital Signs: 18:02 BP 131 / 89; Pulse 75; Resp 17; Temp 98(TE); Pulse Ox 99% on R/A; Weight 98.88 kg; tw2 Height 6 ft. 2 in. (187.96 cm); Pain 10/10; 19:20 BP 135 / 89; Pulse 70; Resp 16; Pulse Ox 98% ; rr5 20:30 BP 148 / 75; Pulse 79; Resp 17; Pulse Ox 98% ; rr5 21:20 BP 126 / 62; Pulse 76; Resp 17; Pulse Ox 98% ; rr5 22:29 BP 144 / 96; Pulse 77; Resp 16; Temp 98.4; Pulse Ox 98% ; rr5 23:30 BP 144 / 89; Pulse 70; Resp 17; Pulse Ox 99% ; rr5 18:02 Body Mass Index 27.99 (98.88 kg, 187.96 cm) tw2 18:02 "10 when it comes, it comes and goes" tw2 ED Course: 17:56 Patient arrived in ED. mr 18:07 Triage completed. tw2 18:09 Arm band placed on. tw2 18:14 Lee Monzon PA is PHCP. cp 18:14 Addy Jaimes MD is Attending Physician. cp 18:55 Inserted saline lock: 20 gauge in right antecubital area, using aseptic technique. jd3 Blood collected. 18:58 Jameson Mascorro, RN is Primary Nurse. jd3 18:58 Patient has correct armband on for positive identification. Bed in low position. Call jd3 light in reach. Side rails up X 1. Pulse ox on. NIBP on. 19:33 Grupo Spaulding, RN is Primary Nurse. rr5 19:34 Emanuel Boyle MD is Attending Physician. cp 21:16 NGT: inserted 16 Fr. via left nare. verified placement of air over stomach, to rr5 intermittent suction. Returned gastric contents. flushed with 20 ml NS Patient tolerated well. 22:36 No provider procedures requiring assistance completed. Patient transferred, IV remains rr5 in place. intact, No redness/swelling at site. Administered Medications: 18:56 Drug: Zofran (Ondansetron) 4 mg Route: IVP; Site: right antecubital; jd3 19:20 Follow up: Response: No adverse reaction rr5 18:56 Drug: morphine 4 mg Route: IVP; Site: right antecubital; jd3 20:00 Follow up: Response: No adverse reaction; RASS: Alert and Calm (0) rr5 19:36 Drug: Zofran (Ondansetron) 4 mg Route: IVP; Site: right antecubital; rr5 22:42 Follow up: Response: No adverse reaction rr5 20:41 Not Given (Physician Discretion): Ciprofloxacin 400 mg 200 ml IVPB once over 60 mins cp 20:41 Not Given (Physician Discretion): metroNIDAZOLE 500 mg 100 ml IVPB once over 30 mins cp 22:46 Drug: morphine 4 mg {Note: rass 0.} Route: IVP; Site: right antecubital; rr5 23:37 Follow up: Response: No adverse reaction; RASS: Alert and Calm (0) rr5 Output: 22:10 Gastric: 800ml (NGT); Total: 800ml. rr5 Outcome: 20:56 ER care complete, transfer ordered by . cp 23:37 Transferred by ground EMS to [facility], Transfer form rr5 completed. 23:37 Condition: stable 23:37 Instructed on the need for transfer. 23:38 Patient left the ED. rr5 Signatures: Svitlana Mejia Corey, PA PA cp Sabrina Jean Baptiste RN RN tw2 Jameson Mascorro RN RN jd3 Grupo Spaulding RN RN rr5 Corrections: (The following items were deleted from the chart) 18:09 18:02 Acuity: АННА 3 tw2 tw2
[2020-09-15 03:24] VITALS: TEMP 98.4
[2020-09-15 03:26] VITALS: BP 144/89; O2SAT 99
== END 2020-09-14 23:38 | disposition short-term general hospital (02) ==
LOC: ER 17:49
DX: K40.30 Unilateral inguinal hernia, with obstruction, without gangrene, not specified as recurrent (principal); I10 Essential (primary) hypertension; Z20.822 Contact with and (suspected) exposure to COVID-19; Z85.46 Personal history of malignant neoplasm of prostate
CPT/HCPCS: 85025; 80048; 36415; 80076; 83690; 74177; U0003; Q9967; J2405 ×2; J0744; 96374; 96375; 99285